=== PATIENT | male | born 1945 | race Caucasian/White ===

== ENCOUNTER 2017-11-28 07:30 | Day surgery (SDC) | payer MEDICARE ==
[~2017-11-28] VITALS: Ht 180.3 cm; Wt 113.0 kg
[~2017-11-28 07:30] MED LIST: BAYE325T3 PO; DIGO0.25 PO; ORPH100T PO; TRAM50 PO
[2017-11-28] MEDS ORDERED: IOHEXOL 300 MG/ML 50 ML BTL (for RAD DIAG) OTHER ONE (07:31)
[2017-11-28 08:10] VITALS: BP 146/58; PULSE 75; RESP 18; TEMP 97.4; O2SAT 96
[2017-11-28] MEDS ORDERED: SODIUM CHLOR 0.9% 1000 ML INJ 1,000 ML IV SCH (08:15)
[2017-11-28] MEDS ORDERED: DIGO0.12 PO (08:32)
[2017-11-28] MEDS ORDERED: DULO1CAP PO (08:32)
[2017-11-28] MEDS ORDERED: FLUT50SP EACH NARE (08:32)
[2017-11-28] MEDS ORDERED: VITA200013 PO (08:32)
[2017-11-28] MEDS ORDERED: OMEP20TA93 PO (08:32)
[2017-11-28] MEDS ORDERED: FLUT55AE INH (08:32)
[2017-11-28] MEDS ORDERED: ZOLP10TA3 PO (08:32)
[2017-11-28] MEDS ORDERED: MAGN250T11 PO (08:32)
[2017-11-28] MEDS ORDERED: MONT10TA4 PO (08:32)
[2017-11-28] MEDS ORDERED: LEVO75TA3 PO (08:32)
[2017-11-28] MEDS ORDERED: MULT-65 PO (08:32)
[2017-11-28] MEDS ORDERED: NAPR500T2 PO (08:32)
[2017-11-28 08:59] LABS: AUTOMATED NEUTROPHIL # 8.1 TH/MM3 (1.8-7.7); BASOPHIL # 0.1 TH/MM3 (0-0.2); BASOPHIL % 0.9 % (0.0-2.0); EOSINOPHIL # 0.4 TH/MM3 (0-0.4); EOSINOPHIL % 3.1 % (0.0-4.0); HEMATOCRIT 45.2 % (39.0-51.0); HEMOGLOBIN 15.4 GM/DL (13.0-17.0); LYMPH % 17.5 % (9.0-44.0); LYMPHOCYTE # 2.1 TH/MM3 (1.0-4.8); MEAN CELL VOLUME 93.6 FL (80.0-100.0); MEAN CORPUSCULAR HEMOGLOBIN 31.9 PG (27.0-34.0); MEAN CORPUSCULAR HGB CONC 34.1 % (32.0-36.0); MEAN PLATELET VOLUME 8.6 FL (7.0-11.0); MONO % 10.4 % (0.0-8.0); MONOCYTE # 1.2 TH/MM3 (0-0.9); NEUT % 68.1 % (16.0-70.0); PLATELET COUNT 247 TH/MM3 (150-450); RED BLOOD COUNT 4.83 MIL/MM3 (4.50-5.90); RED CELL DISTRIBUTION WIDTH 13.7 % (11.6-17.2); WHITE BLOOD COUNT 11.9 TH/MM3 (4.0-11.0)
[2017-11-28] MEDS ORDERED: BUPIVACAINE HCL PF 0.75% 30 ML VIAL ONE (10:38)
[2017-11-28] MEDS ORDERED: MIDAZOLAM HCL 2 MG/2 ML VIAL ONE (10:47)
[2017-11-28] MEDS ORDERED: fentaNYL CITRATE 250 MCG/5 ML AMP ONE (10:47)
[2017-11-28] MEDS ORDERED: ceFAZolin 2 GM PREMIX 50 ML ONE (11:14)
[2017-11-28] MEDS ORDERED: LORazepam 2 MG/ML VIAL ONE (11:21)
[2017-11-28 12:05] VITALS: BP 127/85; PULSE 82; RESP 16; TEMP 97.9; O2SAT 92
[2017-11-28 12:35] VITALS: BP 121/83; PULSE 71; RESP 18; O2SAT 93
--- NOTE | 2017-11-28 12:56 | RADRPT ---
EXAM DATE/TIME: 11/28/2017 10:55 [place] COMPARISON: No previous studies available for comparison. INDICATIONS : Patient presents with a fracture of T-9 in need of kyphoplasty. MEDICAL HISTORY : A-fib, Obstructed sleep apnea Thoracic disk fracture SURGICAL HISTORY : NA ENCOUNTER: Initial ACUITY: 3 weeks PAIN SCORE: 1/10 LOCATION: Back FLUORO TIME: 21.0 minutes IMAGE SERIES: 6 SEDATION TIME: 60 minutes LEVEL: T9 MEDICATION(S): 1.) 4 mg midazolam (Versed) IV 2.) 250 mcg fentanyl (Sublimaze) IV 3.) 2 mg lorazepam (Ativan) IV DEVICE: 1. 4 cc AVAMax bone cement PROCEDURE : 1. Fluoroscopically-guided kyphoplasty. 2. Conscious sedation with continuous EKG and oximetry monitoring. The risks, benefits and alternatives to the procedure were explained and verbal and written consent w as obtained. The site was prepped in sterile fashion. Full sterile technique was used, including ca p, mask, sterile gloves and gown and a large sterile sheet. Hand hygiene and 2% chlorhexidine and/or betadine/alcohol prep was utilized per protocol for cutaneous antisepsis. The skin and subcutaneous tissues were infiltrated with local anesthetic solution. With fluoroscopic guidance via the above described approach access was gained to the vertebral body. Kyphoplasty was performed with cavity creation as above. The prescribed cement volume was placed. Post procedure images demonstrate good filling of vertebral body as well as the T9-T10 disc space whi ch wasn't competent with balloon inflation. Conscious sedation was performed with the prescribed dosages and duration as above in the presence of an independent trained radiology nurse to assist in the monitoring of the patient. EKG and oximetry remained stable throughout the procedure. The patient tolerated the procedure well and there were n o complications. The patient was sent to post anesthesia recovery in stable condition. CONCLUSION: Uncomplicated kyphoplasty as above. Kareem Espinosa MD on November 28, 2017 at 12:53 Board Certified Radiologist. This report was verified electronically.
--- NOTE | 2017-11-28 12:57 | PD.RAD ---
Post Procedure Progress Note Pre Procedure Diagnosis: (1) Compression fracture of body of thoracic vertebra Post Procedure Diagnosis: (1) Compression fracture of body of thoracic vertebra Procedure Date: Nov 28, 2017 Supervising Radiologist: Kareem Espinosa Proceduralist/Assist: RT Charly(R) Anesthesia: Conscious Sedation Plan of Activity Patient to Unit: ROPU Patient Condition: Good See PACS Report for procedural detail/treatment Spinal Procedure Kyphoplasty T9 Total Bone Cement (CCs): 4 Kareem Espinosa MD Nov 28, 2017 12:57
[2017-11-28 13:05] VITALS: BP 112/77; PULSE 61; RESP 17; O2SAT 97
[2017-11-28 13:35] VITALS: BP 115/72; PULSE 72; RESP 18; O2SAT 98
[2017-11-28 14:05] VITALS: BP 122/77; PULSE 77; RESP 17; O2SAT 99
== END 2017-11-28 14:30 | disposition home or self-care (01) ==
LOC: HROP 07:30 → HRIP 07:35 → HROP 14:30
PROVIDERS: ATTEND Family Medicine
DX: S22.070A Wedge compression fracture of T9-T10 vertebra, initial encounter for closed fracture (principal); I48.91 Unspecified atrial fibrillation; G47.30 Sleep apnea, unspecified
CPT/HCPCS: 22513; 85025; 85610; 85730; 99152; 99153; J0690; J2060; J2250; J3010; J7030; Q9967